=== PATIENT | female | born 1950 | race Caucasian/White ===

== ENCOUNTER 2023-02-28 07:09 | Day surgery (SDC) | payer MEDICARE ==
[~2023-02-28 07:09] MED LIST: DEXAMETHASONE SOD PHOSPHATE 4 MG/ML 1 ML VIAL IV ONE; HYDROmorphone 0.5 MG/0.5 ML SYRINGE IVP PRN; LACTATED RINGERS 1,000 ML IV SCH; LIDOCAINE 1% (10MG/ML) FOR IV START INTRADERMA PRN; MIDAZOLAM 2 MG/2 ML VIAL IV PRN; ONDANSETRON 4 MG/2 ML VIAL IVP ONE; Pre Op ABX Message 1 EACH MISC MISCELLANE ONE
[2023-02-28] MEDS ORDERED: PROPOFOL 10 MG/ML 20 ML VIAL IV ONE (09:26)
[2023-02-28] MEDS ORDERED: MIDAZOLAM 2 MG/2 ML VIAL ONE (09:26)
[2023-02-28] MEDS ORDERED: ePHEDrine 50 MG/ML 1 ML VIAL ONE (09:26)
[2023-02-28] MEDS ORDERED: fentaNYL (PF) 50 MCG/ML 2 ML AMP ONE (09:26)
[2023-02-28] MEDS ORDERED: LIDOCAINE 2% INJ 20 MG/ML (2 ML VIAL) ONE (09:26)
[2023-02-28] MEDS ORDERED: SODIUM CHLORIDE 0.9% 100 ML with ceFAZolin 2,000 MG IV ONE ×2 (09:31)
[2023-02-28] MEDS ORDERED: ceFAZolin 1,000 MG in SODIUM CHLORIDE 0.9% 1,000 ML IRRIGATION ONE (09:31)
[2023-02-28] MEDS ORDERED: BUPIVACAINE (PF) 0.25% 30 ML VIAL SQ ONE (09:50)
[2023-02-28 10:33] VITALS: TEMP 97.6
[2023-02-28] MEDS ORDERED: LACTATED RINGERS 1,000 ML IV ONE (11:38)
[2023-02-28 11:59] VITALS: PULSE 78; RESP 14
[2023-02-28 12:11] VITALS: BP 116/55
--- NOTE | 2023-02-28 14:37 | P.OP ---
Date of Procedure: 02/28/23 Preoperative Diagnosis: Hallux rigidus right foot Postoperative Diagnosis: Same Procedure(s) Performed: First metatarsal implant arthroplasty right foot Implants: Arthrosurface HemiCap implant with 3.5mm x 2.5mm offset Anesthesia: DOMINIQUEA Surgeon: Mathew Corea Estimated Blood Loss (ml): 1 Pathology: none sent Condition: stable Disposition: PACU Description of Procedure: The patient was brought into the operating room and placed on table supine position. Timeout was taken to confirm correct patient identifiers, correct laterally surgery, and correct procedure. When all staff in the room were in agreement the timeout, the patient was induced and placed under general anesthesia. A well-padded tourniquet was placed on the ankle and then 20 mL of 0.25% Marcaine was injected as an ankle block. The foot was then prepped and draped in the usual manner. The foot was exsanguinated and the tourniquet inflated to 250 mmHg. Attention was directed over the dorsomedial aspect of the first metatarsal phalangeal joint, where a linear incision was made between the long extensor tendon and the neurovascular structures. The incision was deepened down to the subcutaneous tissue careful to identify, avoid, and retract any neurovascular structures and cauterize any bleeding vessels. Blunt dissection was then carried down to the periosteum and capsule around the first metatarsal phalangeal joint. A linear periosteal and capsular incision was made medial to the extensor tendon. The periosteal and capsular tissues were reflected from the osseous attachments of the first metatarsal head and base of the proximal phalanx. Visual inspection of the articular surface of the first metatarsal head showed greater than 50% full-thickness erosion of the articular cartilage and thinning of the remainder cartilage with fraying on the plantar aspect. A s agittal saw was used to resect the osteophytes of the dorsal aspect of the first metatarsal head but not aggressively so I did not disrupt the bony foundation for the implant placement. Guidewires placed in the central aspect of the first metatarsal head and, under fluoroscopy, guided in the first metatarsal shaft parallel to the long axis. Once the pin was properly positioned the reamer was inserted and taken down to proper depth. The tap was inserted and taken down to the laser line when aligned up with the articular cartilage surface. Then the implant was inserted it was taken down to the laser line at the articular surface and then advanced 1 additional millimeter for decompression. The reamer was placed over the guidewire and then activated and advanced until it stopped on the implant. The trial was placed and showed proper fit. There was increased range of motion the first metatarsal phalangeal joint. The sesamoid apparatus glided normally with dorsiflexion of the first metatarsal phalangeal joint. With the trial implants still in place the excessive bone medially laterally and plantarly was resected carefully so as not to disrupt the shelf of bone with the implant would sit. Once completed the trial was removed and the area thoroughly irrigated with antibiotic saline. The joint implant was then positioned and placed into the anchor. And then impacted into place. Fluoroscopy was then taken that show the implant properly aligned. A lateral view was also done with the first metatarsal phalangeal joint maximally dorsiflexed to show how much motion was available. The wound is then thoroughly irrigated with antibiotic saline. The capsule was repaired with 0 Vicryl. Subcu closure was done with 3-0 Monocryl. And skin closure was done with 4-0 Stratafix in a running subcuticular manner. Dermal glue was placed over the incision and allowed to dry. Steri-Strips were then applied across incision. An Arthrex jumpstart dressing was applied over the incision and then a dry sterile dressing applied to the foot. The tourniquet was released and capillary refill return to all digits on the left foot. The patient tolerated the above procedure and anesthesia well. Patient left the operating room to recovery with vital signs stable
== END 2023-02-28 12:56 | disposition home or self-care (01) ==
LOC: OR 07:09
PROVIDERS: ATTEND Podiatrist
DX: M20.21 Hallux rigidus, right foot (principal); M25.774 Osteophyte, right foot; E03.9 Hypothyroidism, unspecified; M79.7 Fibromyalgia; M19.90 Unspecified osteoarthritis, unspecified site; F10.20 Alcohol dependence, uncomplicated; Z87.19 Personal history of other diseases of the digestive system; Z79.899 Other long term (current) drug therapy; Z88.0 Allergy status to penicillin; Z88.5 Allergy status to narcotic agent; Z88.8 Allergy status to other drugs, medicaments and biological substances; Z79.890 Hormone replacement therapy; Z91.040 Latex allergy status
CPT/HCPCS: 28291; J1100; J2405; J0690

== ENCOUNTER → 2023-04-03 | Outpatient (CLI) | payer MEDICARE ==
--- NOTE | 2023-04-03 16:35 | US ---
EXAMINATION TYPE: US venous doppler duplex LE BI DATE OF EXAM: 04/03/2023 4:28 PM COMPARISON: NONE CLINICAL INDICATION: Female, 72 years old with history of I809 PHLEBTIS AND THROMBOPHLEBITIS; Bilater al leg swelling SIDE PERFORMED: Bilateral TECHNIQUE: The lower extremity deep venous system is examined utilizing real time linear array sonog sekou with graded compression, doppler sonography and color-flow sonography. VESSELS IMAGED: Common Femoral Vein Deep Femoral Vein Greater Saphenous Vein * Femoral Vein Popliteal Vein Small Saphenous Vein * Proximal Calf Veins (* superficial vessels) Grayscale, color doppler, spectral doppler imaging performed of the deep veins of the lower extremiti es. There is normal flow, compressibility, vascular waveforms. Right Leg: Appears negative for DVT Left Leg: Appears negative for DVT IMPRESSION: No ultrasound evidence for deep venous thrombosis of the bilateral lower extremities.
== END | disposition home or self-care (01) ==
LOC: RADUSWWP 15:33
PROVIDERS: ATTEND Orthopaedic Surgery
DX: I80.9 Phlebitis and thrombophlebitis of unspecified site (principal); M17.0 Bilateral primary osteoarthritis of knee
CPT/HCPCS: 93970